=== PATIENT | male | born 1975 | race Caucasian/White ===

== ENCOUNTER 2019-03-09 11:41 | Emergency (ER) | payer SELFPAY ==
[~2019-03-09] VITALS: Ht 165.1 cm; Wt 77.3 kg
[2019-03-09 13:45] VITALS: BP 134/85; PULSE 65; TEMP 98.2
== END 2019-03-09 13:45 | disposition home or self-care (01) ==
LOC: COL.ER 11:41
DX: S92.314A Nondisplaced fracture of first metatarsal bone, right foot, initial encounter for closed fracture (principal); F17.210 Nicotine dependence, cigarettes, uncomplicated; W19.XXXA Unspecified fall, initial encounter; W22.8XXA Striking against or struck by other objects, initial encounter; Y92.59 Other trade areas as the place of occurrence of the external cause